=== PATIENT | female | born 1975 | race Caucasian/White ===

== ENCOUNTER 2017-06-05 20:39 | Emergency (ER) | payer OTHER ==
[2017-06-05 21:11] VITALS: O2SAT 98
--- NOTE | 2017-06-05 21:23 | C.PDOC ---
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 History/Exam Limitations: no limitations Onset/Duration Of Symptoms: Days, Intermittent Episodes Current Symptoms Are (Timing): Better Severity: Mild Quality: Sharp Associated Symptoms: denies: Nausea, Dyspnea, Diaphoresis, Syncope Exacerbating Factors: Movement, Deep Breathing Alleviating Factors: None Recent travel outside of the [place]: No Past Medical History Vital Signs: Last Vital Signs Temp 98.1 F 06/05/17 22:31 Pulse 69 06/05/17 22:31 Resp 16 06/05/17 22:31 BP 121/76 06/05/17 22:31 Pulse Ox 98 06/05/17 23:15 - Medical History PMH: No Chronic Diseases Surgical History: No Surg Hx Family History: States: No Known Family Hx - Social History Hx Alcohol Use: No Hx Substance Use: No Physical Exam - Physical Exam Appears: Well Skin: Normal Color Head: Atraumatic, Normacephalic Nose: Normal Oral Mucosa: Moist Tongue: Normal Appearing Lips: Normal Appearing Neck: Normal Chest: Symmetrical, Tenderness Cardiovascular: Rhythm Regular Respiratory: Normal Breath Sounds Gastrointestinal/Abdominal: Normal Exam Back: Normal Inspection Extremity: Normal ROM ED Course And Treatment - Laboratory Results Result Diagrams: 06/05/17 21:29 06/05/17 21:29 ECG: Interpreted By Me, Viewed By Me ECG Rhythm: Sinus Rhythm ECG Interpretation: Normal, No Acute Changes Interpretation Of ECG: NSR,nl axis,intervals.No ectopy,noSTTw changes O2 Sat by Pulse Oximetry: 98 - Radiology CXR: Interpreted by Me CXR Interpretation: Yes: No Acute Disease Nexus Criteria: Negative Disposition - Disposition Referrals: [facility] [Outside] Disposition: HOME/ ROUTINE Disposition Time: 22:51 Condition: GOOD Forms: [facility] (Greenlandic), Gen Discharge Inst Citizen Of [place] - Clinical Impression Clinical Impression: Chest wall pain
[2017-06-05 21:41] LABS: CHLORIDE 102 mmol/L (98-107); POTASSIUM 3.5 mmol/L (3.6-5.2); SODIUM 143 mmol/L (132-148)
[2017-06-05 21:44] LABS: ALB/GLOB RATIO 1.5 (1.0-2.1); ALKALINE PHOSPHATASE 75 U/L (38-126); ALT/SGPT 23 U/L (9-52); AST/SGOT 14 U/L (14-36); BILIRUBIN,TOTAL 0.6 mg/dL (0.2-1.3); BLOOD UREA NITROGEN 7 mg/dL (7-17); CARBON DIOXIDE 23 mmol/L (22-30); GFR AFRICAN-AMERICAN > 60; GLUCOSE,RANDOM 145 mg/dL (65-105); TOTAL PROTEIN 7.2 g/dL (6.3-8.3)
[2017-06-05 21:45] LABS: CALCIUM 9.2 mg/dl (8.6-10.4)
[2017-06-05 21:49] VITALS: TEMP 98.1
[2017-06-05 21:54] LABS: BASO # 0.1 K/uL (0.0-0.2); BASO % 1.2 % (0.0-2.0); EOS # 0.3 K/uL (0.0-0.7); EOS % 3.4 % (0.0-4.0); HEMATOCRIT 38.2 % (34.0-47.0); LYMPH # 3.1 K/uL (1.0-4.3); LYMPH % 30.9 % (20.0-40.0); MEAN CELL VOLUME 87.7 fL (81.0-99.0); MEAN CORPUSCULAR HEMOGLOBIN 29.7 pg (27.0-31.0); MEAN CORPUSCULAR HGB CONC 33.9 g/dL (33.0-37.0); MEAN PLATELET VOLUME 11.3 fL (7.2-11.7); MONO # 0.4 K/uL (0.0-0.8); MONO % 3.9 % (0.0-10.0); NRBC % 0.1 % (0.0-2.0); RED CELL DISTRIBUTION WIDTH 13.5 % (11.5-14.5); WHITE BLOOD COUNT 9.9 K/uL (4.8-10.8)
[2017-06-05 23:02] VITALS: BP 121/76; PULSE 69; RESP 16
--- NOTE | 2017-06-06 07:11 | RAD ---
HISTORY: chest pain COMPARISON: None TECHNIQUE: Chest one view . FINDINGS: LUNGS: No focal consolidation is seen. PLEURA: No pleural effusion is identified. CARDIOVASCULAR: Heart size is within normal limits. OSSEOUS STRUCTURES: No significant abnormalities. VISUALIZED UPPER ABDOMEN: Unremarkable. OTHER FINDINGS: None. IMPRESSION: No acute cardiopulmonary process seen.
--- NOTE | 2017-06-30 12:39 | CARD ---
APPROVED REPORT EKG Measurement Heart [id number] <Conclusion> Normal sinus rhythm Normal ECG
== END 2017-06-05 23:13 | disposition home or self-care (01) ==
LOC: C.ER 20:39
DX: R07.89 Other chest pain (principal)

== ENCOUNTER 2018-05-16 08:15 | Emergency (ER) | payer OTHER ==
[2018-05-16 08:30] VITALS: TEMP 98.9
--- NOTE | 2018-05-16 09:16 | C.PDOC ---
History Of Present Illness 43 y/o female, w/PMhx of diabetes, presents to the ER complaining of swelling and redness to the medial aspect of right foot which has been present for the past 2 days. Patient denies having fever and chills. Time Seen by Provider: 05/16/18 08:33 Chief Complaint (Nursing): Lower Extremity Problem/Injury History Per: Patient History/Exam Limitations: no limitations Onset/Duration Of Symptoms: Days Current Symptoms Are (Timing): Still Present Severity: Moderate Past Medical History Reviewed: Historical Data, Nursing Documentation, Vital Signs Vital Signs: Last Vital Signs Temp 98.9 F 05/16/18 08:26 Pulse 70 05/16/18 11:21 Resp 16 05/16/18 11:21 BP 129/75 05/16/18 11:21 Pulse Ox 98 05/16/18 11:21 - Medical History PMH: Diabetes Surgical History: No Surg Hx Family History: States: No Known Family Hx - Social History Hx Alcohol Use: No Hx Substance Use: No Review Of Systems Except As Marked, All Systems Reviewed And Found Negative. Constitutional: Negative for: Fever, Chills Musculoskeletal: Positive for: Foot Pain (right foot pain) Physical Exam - Physical Exam Appears: Non-toxic, No Acute Distress Skin: Normal Color, Warm, Dry, Other (blisters and erythema to arch of right foot) Head: Atraumatic, Normacephalic Eye(s): bilateral: Normal Inspection Nose: Normal Oral Mucosa: Moist Neck: Supple Chest: Symmetrical Cardiovascular: Rhythm Regular Respiratory: Normal Breath Sounds, No Rales, No Rhonchi, No Wheezing Extremity: Normal ROM, Tenderness (tenderness to arch of right foot) Neurological/Psych: Oriented x3, Normal Speech ED Course And Treatment - Laboratory Results Result Diagrams: 05/16/18 09:23 05/16/18 09:23 Lab Interpretation: Normal O2 Sat by Pulse Oximetry: 97 (RA) Pulse Ox Interpretation: Normal - Other Rad No standard instances X-Ray: Interpreted by Me Interpretation: foot X-Ray: neg Progress Note: case discussed and patient evaluated by podiatry resident who drained abscess at bedside. Treated with rocephin 1 gm IV. Discharged in stable condition Reassessment Condition: Improved Medical Decision Making Medical Decision Making: Plan: --Labs --UA --X-Ray- Right Foot Disposition Counseled Patient/Family Regarding: Studies Performed, Diagnosis, Need For Followup, Rx Given - Disposition Referrals: [facility] [Outside] [facility] [Outside] Disposition: HOME/ ROUTINE Disposition Time: 11:15 Condition: STABLE Additional Instructions: Follow up with podiatry for further evaluation Prescriptions: Amoxicillin/Clavulanate [Augmentin 875 MG-125 MG] 1 tab PO BID #14 tab Instructions: Skin Abscess Forms: [employer] (American) Print Language: SINHAL[place] - POA Present On Arrival: None - Clinical Impression Clinical Impression: Abscess - 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 - Scribe Statement The provider has reviewed the documentation as recorded by the Shade Oliveros Provider Attestation All medical record entries made by the Shade were at my direction and personally dictated by me. I have reviewed the chart and agree that the record accurately reflects my personal performance of the history, physical exam, medical decision making, and the department course for this patient. I have also personally directed, reviewed, and agree with the discharge instructions and disposition.
[2018-05-16 09:27] LABS: BASO # 0.1 K/uL (0.0-0.2); BASO % 1.5 % (0.0-2.0); EOS # 0.3 K/uL (0.0-0.7); EOS % 3.8 % (0.0-4.0); HEMOGLOBIN 13.8 g/dL (11.0-16.0); LYMPH # 2.1 K/uL (1.0-4.3); LYMPH % 24.6 % (20.0-40.0); MEAN CELL VOLUME 87.6 fL (81.0-99.0); MEAN CORPUSCULAR HEMOGLOBIN 30.1 pg (27.0-31.0); MEAN CORPUSCULAR HGB CONC 34.3 g/dL (33.0-37.0); MEAN PLATELET VOLUME 10.7 fL (7.2-11.7); MONO # 0.4 K/uL (0.0-0.8); MONO % 4.9 % (0.0-10.0); NEUT # 5.5 K/uL (1.8-7.0); NEUT % 65.2 % (50.0-75.0); RBC 4.58 Mil/uL (3.80-5.20); RED CELL DISTRIBUTION WIDTH 13.4 % (11.5-14.5); WHITE BLOOD COUNT 8.5 K/uL (4.8-10.8)
--- NOTE | 2018-05-16 09:27 | RAD ---
Date of service: 05/16/2018 PROCEDURE: Right Foot Radiographs. HISTORY: pain COMPARISON: None. FINDINGS: BONES: Normal. No fracture. JOINTS: Mild hallux valgus deformity with minimal DJD 1st MTP joint and mild prominence of the overlying medial soft tissues. . Tiny posterior surface calcaneal enthesophyte. SOFT TISSUES: Normal. OTHER FINDINGS: None. IMPRESSION: Mild hallux valgus deformity with minimal DJD 1st MTP joint and mild prominence of the overlying medial soft tissues.
[2018-05-16 09:54] LABS: ALB/GLOB RATIO 1.4 (1.0-2.1); ALBUMIN 4.6 g/dL (3.5-5.0); ALT/SGPT 21 U/L (9-52); AST/SGOT 32 U/L (14-36); BLOOD UREA NITROGEN 11 mg/dL (7-17); CALCIUM 9.7 mg/dl (8.6-10.4); GFR NON-AFRICAN AMERICAN > 60
[2018-05-16 10:12] LABS: SQUAMOUS EPITHIAL 2 /hpf (0-5); URINE BACTERIA RARE (<OCC); URINE BILIRUBIN NEGATIVE (NEGATIVE); URINE BLOOD 1+ (NEGATIVE); URINE CLARITY Clear (Clear); URINE COLOR Yellow (YELLOW); URINE GLUCOSE (UA) NORMAL (Normal); URINE LEUKOCYTE ESTERASE TRACE Leu/uL (Negative); URINE PROTEIN NEGATIVE (NEGATIVE); URINE UROBILINOGEN NORMAL mg/dL (0.2-1.0)
[2018-05-16] MEDS ORDERED: Lidocaine 1% Inj (20ml) INFIL STA (10:21)
[2018-05-16] MEDS ORDERED: Lidocaine Hydrochloride 10 ML INJ ONE (10:40)
[2018-05-16] MEDS ORDERED: cefTRIAXone IV 1 gm in Dextros 50 ML IV ONE (10:44)
--- NOTE | 2018-05-16 10:59 | CP.PCM.CON ---
History of Present Illness - History of Present Illness History of Present Illness: 43 y/o female with PMHx of diabetes seen in ED today for right foot swelling and redness x2 days. She states she noticed the arch area of the right foot turning red and getting more swollen over the last 48 hours but denies any trauma. Denies any history of pedal infections or ulcerations. Denies F/C/N/V/CP /SOB PSH: denies All: denies SocHx: social EtOH; denies cigarette or drug use Review of Systems - Review of Systems All systems: reviewed and no additional remarkable complaints except (per HPI) Past Patient History - Past Social History Smoking Status: Never Smoked - ENDOCRINE/METABOLIC Hx Endocrine Disorders: Yes Hx Diabetes Mellitus Type 2: Yes - PSYCHIATRIC Hx Substance Use: No - SURGICAL HISTORY Hx Surgeries: No Meds Home Medications: Home Medication List Medication Instructions Recorded Confirmed Type Amoxicillin/Clavulanate [Augmentin 1 tab PO BID #14 tab 05/16/18 Rx 875 MG-125 MG] Allergies/Adverse Reactions: Allergies Allergy/AdvReac Type Severity Reaction Status Date / Time No Known Allergies Allergy Verified 06/05/17 21:02 - Medications Medications: Current Medications Ceftriaxone Sodium 1 gm/ (Sodium Chloride) 100 mls @ 200 mls/hr IVPB ONCE ONE PRN Reason: Protocol Stop: 05/16/18 11:29 Physical Exam - Constitutional Appears: Well, Non-toxic, No Acute Distress - Extremities Exam Additional comments: Lower extremity focused: Vasc: DP/PT pulses palpable 2/4. Temperature gradient warm to cool B/L. CFT < 3 sec to all digits. Mild localized pedal edema noted to right plantar medial arch Derm: Multiple fluid-filled mobile blisters noted to plantar medial arch of right foot with peripheral erythema noted. No fluctuance or suspected abscess formation. No purulence or drainage noted. No open lesions, no ecchymosis. Neuro: protective sensation grossly intact Ortho: Tenderness to palpation of right foot plantar arch surrounding site of blisters. MMT 5/5 in all directions. ROM of all joints is WNL on active and passive assessment - Neurological Exam Neurological exam: Alert, Oriented x3 - Psychiatric Exam Psychiatric exam: Normal Affect, Normal Mood Results - Vital Signs Recent Vital Signs: Last Vital Signs Temp 98.9 F 05/16/18 08:26 Pulse 71 05/16/18 08:26 Resp 20 05/16/18 08:26 BP 132/77 18 08:26 Pulse Ox 97 05/16/18 09:19 - Labs Result Diagrams: 05/16/18 09:23 05/16/18 09:23 Labs: Laboratory Results - last 24 hr 05/16/1818 05/16/18 09:23 09:23 10:00 WBC 8.5 RBC 4.58 Hgb 13.8 Hct 40.1 MCV 87.6 MCH 30.1 MCHC 34.3 RDW 13.4 Plt Count 188 MPV 10.7 Neut % (Auto) 65.2 Lymph % (Auto) 24.6 [place]arro % (Auto) 4.9 Eos % (Auto) 3.8 Baso % (Auto) 1.5 Neut # (Auto) 5.5 Lymph # (Auto) 2.1 [place] # (Auto) 0.4 Eos # (Auto) 0.3 Baso # (Auto) 0.1 ESR 20 Sodium 143 Potassium 4.0 Chloride 103 Carbon Dioxide 29 Anion Gap 15 BUN 11 Creatinine 0.4 L Est GFR ( Amer) > 60 Est GFR (Non-Af Amer) > 60 Random Glucose 114 H Calcium 9.7 Total Bilirubin 0.7 AST 32 ALT 21 Alkaline Phosphatase 105 Total Protein 7.9 Albumin 4.6 Globulin 3.3 Albumin/Globulin Ratio 1.4 Urine Color Yellow Urine Clarity Clear Urine pH 7.0 Ur Specific Jarratt 1.016 Urine Protein Negative Urine Glucose (UA) Normal Urine Ketones Negative Urine Blood 1+ H Urine Nitrate Negative Urine Bilirubin Negative Urine Urobilinogen Normal Ur Leukocyte Esterase Trace Urine WBC (Auto) 2 Urine RBC (Auto) 1 Ur Squamous Epith Cells 2 Urine Bacteria Rare Assessment & Plan - Assessment and Plan (Free Text) Assessment: 43 y/o diabetic female with right foot swelling and blisters Plan Pt seen and evaluated in ED Discussed with attending Dr. Jones Afebrile, no leukocytosis 10cc of 1% Lidocaine injected to right foot in tibial nerve block and local ring block fashion Blisters to right foot arch lanced and drained with sterile 25 gauge needle Pt tolerated procedure without incident Site dressed with bacitracin and DSD Pt advised to change bandages daily and monitor site closely for any increase in redness or swelling as well as any pus Pt instructed to return to ED immediately if she experiences fever, chills, nausea, vomiting or worsening significant pain and swelling to the right lower extremity Pt dispensed oral antibiotic by ED, to be taken regularly as prescribed Pt to follow up with Dr. Jones in [facility] clinic on Monday 05/21
[2018-05-16] MEDS ORDERED: Lidocaine Hydrochloride 5 ML INJ ONE (11:00)
[2018-05-16 11:21] VITALS: BP 129/75; PULSE 70; RESP 16
[2018-05-16 18:37] VITALS: O2SAT 97
== END 2018-05-16 11:21 | disposition home or self-care (01) ==
LOC: C.ER 08:15
DX: L02.611 Cutaneous abscess of right foot (principal); S90.821A Blister (nonthermal), right foot, initial encounter; X58.XXXA Exposure to other specified factors, initial encounter
CPT/HCPCS: 10060; 73630; 80053; 81001; 85025; 85651; 96365; 99284; J0696

== ENCOUNTER 2018-05-21 08:41 | Emergency (ER) | payer OTHER ==
[2018-05-21 09:05] VITALS: RESP 18
--- NOTE | 2018-05-21 09:28 | C.PDOC ---
History Of Present Illness 43 years old female presents to ED with complaints of pain to her right foot for few days. Patient states she was seen here in ED last week and had area drained, but the pain still persists. Patient is taking antibiotic but has not taken anything for pain. She denies fever, drainage, numbness or weakness. Pain worsens with standing or walking. Per previous records from 05/16, the patient was seen for right foot pain and swelling. Podiatry saw patient and gave tibial nerve block, and blisters of right foot drained. Patient was told to follow up with clinic 05/21 (today) and given Augmentin. Time Seen by Provider: 05/21/18 09:19 Chief Complaint (Nursing): Lower Extremity Problem/Injury History Per: Patient History/Exam Limitations: no limitations Onset/Duration Of Symptoms: Hrs Current Symptoms Are (Timing): Still Present Recent travel outside of the [place]: No Past Medical History Reviewed: Historical Data, Nursing Documentation, Vital Signs Vital Signs: Last Vital Signs Temp 98.1 F 05/21/18 09:37 Pulse 76 05/21/18 09:37 Resp 18 05/21/18 09:37 BP 116/75 05/21/18 09:37 Pulse Ox 99 05/21/18 10:33 - Medical History PMH: Diabetes Surgical History: No Surg Hx Family History: States: No Known Family Hx - Social History Hx Alcohol Use: No Hx Substance Use: No - Immunization History Hx Tetanus Toxoid Vaccination: No Hx Influenza Vaccination: No Hx Pneumococcal Vaccination: No Review Of Systems Constitutional: Negative for: Fever, Chills Gastrointestinal: Negative for: Nausea, Vomiting, Diarrhea Musculoskeletal: Positive for: Other (Foot pain ) Skin: Negative for: Rash Neurological: Negative for: Weakness, Numbness Physical Exam - Physical Exam Appears: Well, Non-toxic, No Acute Distress Skin: Normal Color, Warm, Dry, No Rash, Other (2 small blisters to right medial aspect of arch of foot, no surrouding erythema, minimal tenderness to touch) Head: Atraumatic, Normacephalic Eye(s): bilateral: Normal Inspection Oral Mucosa: Moist Neck: Normal ROM Chest: Symmetrical, No Tenderness Cardiovascular: Rhythm Regular, No Murmur Respiratory: Normal Breath Sounds, No Wheezing Extremity: Bilateral: No Pedal Edema, Normal ROM Pulses: Left Dorsalis Pedis: Normal, Right Dorsalis Pedis: Normal Neurological/Psych: Oriented x3, Normal Speech Gait: Steady ED Course And Treatment O2 Sat by Pulse Oximetry: 99 (RA) Pulse Ox Interpretation: Normal Medical Decision Making Medical Decision Making: Patient here for follow up after podiatry procedure. Patient misunderstood and should have gone to clinic for follow up. Paged and spoke with podiatry, Dr Farfan who states he is in surgical case and unable to see patient in ED. This condition not urgent and instructed for patient to follow up with clinic today at Noon. Patient remained afebrile in no distress and explain to her she needs to see podiatry in the Clinic later today. Patient given Rx for pain. 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 - Scribe Statement The provider has reviewed the documentation as recorded by the Charlaibfany Madrigal All medical record entries made by the Shade were at my direction and personally dictated by me. I have reviewed the chart and agree that the record accurately reflects my personal performance of the history, physical exam, medical decision making, and the department course for this patient. I have also personally directed, reviewed, and agree with the discharge instructions and disposition.
[2018-05-21 09:41] VITALS: BP 116/75; PULSE 76; TEMP 98.1
[2018-05-21 10:30] VITALS: O2SAT 99
== END 2018-05-21 09:37 | disposition home or self-care (01) ==
LOC: C.ER 08:41
DX: M72.2 Plantar fascial fibromatosis (principal); E11.9 Type 2 diabetes mellitus without complications